=== PATIENT | female | born 1985 | race Caucasian/White ===

== ENCOUNTER 2020-11-12 13:10 | Emergency (ER) | payer OTHER ==
[2020-11-12 14:04] LABS: Urine Blood Trace-intact (Negative); Urine Glucose Negative (Negative); Urine Protein Negative (Negative); Urine Specific Gravity >=1.030 (1.005-1.030)
[2020-11-12 14:21] LABS: Absolute Lymphocytes (CBC) 2.4 K/uL (0.7-4.9); Basophils % 0.2 % (0-1.3); Hematocrit 37.7 % (36.0-45.0); Lymphocytes % 42.5 % (15.3-44.8); MPV 8.2 fL (7.6-11.3); RBC Red Blood Cell Count 4.15 M/uL (3.86-4.86)
[2020-11-12 14:28] LABS: Albumin 3.8 g/dL (3.4-5.0); Bilirubin Direct 0.1 mg/dL (0-0.2); Bilirubin Total 0.7 mg/dL (0.2-1.0); Protein, Total 7.5 g/dL (6.4-8.2)
--- NOTE | 2020-11-12 14:53 | RAD REPORT ---
EXAM DESCRIPTION: CTAbdomen Pelvis W Contrast - 11/12/2020 2:37 pm CLINICAL HISTORY: Abdominal pain. ABD PAIN COMPARISON: No comparisons TECHNIQUE: Biphasic CT imaging of the abdomen and pelvis was performed with 100 ml non-ionic IV cont rast. All CT scans are performed using dose optimization technique as appropriate and may include automated exposure control or mA/KV adjustment according to patient size. FINDINGS: The lung bases are clear. The liver, spleen, pancreas, adrenal glands and kidneys are within normal limits. No bowel obstruction, free air, free fluid or abscess. Small fat containing umbilical hernia. The ba endix is not identified as a discrete structure, however, no secondary findings of appendicitis are i dentified. No evidence of significant lymphadenopathy. No suspicious bony findings. IMPRESSION: No acute intra-abdominal or pelvic finding. Small fat containing umbilical hernia.
--- NOTE | 2020-11-12 15:01 | EDPHYS ---
Physician Documentation [facility] Name: Christy Galicia Age: 35 yrs Sex: Female : 1985 Arrival Date: 11/12/2020 Time: 13:11 Bed 20 Private MD: ED Physician Everton Davis HPI: 11/12 13:44 This 35 yrs old Female presents to ER via Ambulatory with complaints of jr8 Abdominal Pain, Abdominal Swelling. 13:44 The patient presents with abdominal pain. Onset: The symptoms/episode began/occurred jr8 gradually. The symptoms do not radiate. Associated signs and symptoms: Pertinent positives: nausea. The symptoms are described as shooting. Modifying factors: The symptoms are alleviated by nothing, the symptoms are aggravated by movement. Severity of pain: At its worst the pain was moderate in the emergency department the pain is unchanged. The patient has not experienced similar symptoms in the past. The patient has not recently seen a physician. This is a 35-year-old female patient who presented emergency room with increased abdominal pain over the past few days. Stated that she had sneezed excessively a few days ago and has since then had mid abdominal pain that is spread to the left side. Patient stated that she is now becoming nauseated from it and is not drinking or eating correctly.. Historical: - Allergies: 13:16 Clindamycin; ll1 13:16 Chlorhexidine Gluconate; ll1 - PMHx: 13:16 depression/anxiety; ll1 - PSHx: 13:16 hysterectomy; ll1 - Immunization history:: Client reports receiving the 2nd dose of the Covid vaccine. - Social history:: Smoking status: Patient denies any tobacco usage or history of. ROS: 13:44 Eyes: Negative for injury, pain, redness, and discharge, ENT: Negative for injury, jr8 pain, and discharge, Neck: Negative for injury, pain, and swelling, Cardiovascular: Negative for chest pain, palpitations, and edema, Respiratory: Negative for shortness of breath, cough, wheezing, and pleuritic chest pain, Back: Negative for injury and pain, MS/Extremity: Negative for injury and deformity, Skin: Negative for injury, rash, and discoloration, Neuro: Negative for headache, weakness, numbness, tingling, and seizure. 13:44 Abdomen/GI: Positive for abdominal pain, nausea, Negative for vomiting, diarrhea, constipation, abdominal cramps, abdominal distension. Exam: 13:44 Constitutional: This is a well developed, well nourished patient who is awake, alert, jr8 and in no acute distress. Cardiovascular: Regular rate and rhythm with a normal S1 and S2. No gallops, murmurs, or rubs. Normal PMI, no JVD. No pulse deficits. Respiratory: Lungs have equal breath sounds bilaterally, clear to auscultation and percussion. No rales, rhonchi or wheezes noted. No increased work of breathing, no retractions or nasal flaring. Back: No spinal tenderness. No costovertebral tenderness. Full range of motion. Skin: Warm, dry with normal turgor. Normal color with no rashes, no lesions, and no evidence of cellulitis. MS/ Extremity: Pulses equal, no cyanosis. Neurovascular intact. Full, normal range of motion. Neuro: Awake and alert, GCS 15, oriented to person, place, time, and situation. Cranial nerves II-XII grossly intact. Motor strength 5/5 in all extremities. Sensory grossly intact. Cerebellar exam normal. Normal gait. 13:44 Abdomen/GI: Inspection: obese Bowel sounds: active, all quadrants, Palpation: soft, in all quadrants, mild abdominal tenderness, in the anterior aspect of left lateral abdomen and left lower quadrant, mass, is not appreciated, rebound tenderness, is not appreciated, voluntary guarding, is not appreciated, involuntary guarding, is not appreciated, no appreciated organomegaly, Indicators: McBurney's point is not tender, Millard's sign is negative, Rovsing's sign is negative. Vital Signs: 13:18 BP 151 / 95; Pulse 85; Resp 17; Temp 97.4; Pulse Ox 98% ; Weight 101.6 kg; Height 5 ft. ll1 7 in. (170.18 cm); Pain 6/10; 15:42 BP 133 / 90; Pulse 84; Resp 16; tc5 13:18 Body Mass Index 35.08 (101.60 kg, 170.18 cm) ll1 MDM: 13:21 Patient medically screened. jr8 14:59 Data reviewed: vital signs, nurses notes, lab test result(s), radiologic studies, CT jr8 scan. Data interpreted: Pulse oximetry: on room air is 98 %. Interpretation: normal. Counseling: I had a detailed discussion with the patient and/or guardian regarding: the historical points, exam findings, and any diagnostic results supporting the discharge/admit diagnosis, lab results, radiology results, the need for outpatient follow up, a family practitioner, to return to the emergency department if symptoms worsen or persist or if there are any questions or concerns that arise at home. Special discussion: Based on the patient's Hx, exam, and Dx evaluation, there is no indication for emergent surgery or inpatient Tx. It is understood by the patient/guardian that if the Sx's persist or worsen they need to return immediately for re-evaluation. 11/12 13:30 Order name: Basic Metabolic Panel; Complete Time: 14:59 jr8 11/12 13:30 Order name: CBC with Diff; Complete Time: 14:23 jr8 11/12 13:30 Order name: Hepatic Function; Complete Time: 14:59 jr8 11/12 13:30 Order name: Lipase; Complete Time: 14:59 jr8 11/12 14:04 Order name: Urine Dipstick-Ancillary EDMS 11/12 14:07 Order name: Urine --Ancillary (enter results); Complete Time: 14:18 eb 11/12 13:30 Order name: IV Saline Lock; Complete Time: 15:30 jr8 11/12 13:30 Order name: Labs collected and sent; Complete Time: 15:30 jr8 11/12 13:30 Order name: CT Abd/Pelvis - IV Contrast Only; Complete Time: 14:59 jr8 Administered Medications: No medications were administered Disposition: 17:00 Co-signature as Attending Physician, Everton Davis MD I agree with the assessment and rn plan of care. Attestation: The patient's history, exam findings, diagnostics, and a summary of any interventions or procedures was reviewed in detail with Serafin SANDS. Disposition Summary: 11/12/20 15:00 Discharge Ordered Location: Home jr8 Problem: new jr8 Symptoms: have improved jr8 Condition: Stable jr8 Diagnosis - Abdominal pain, Generalized jr8 Followup: jr8 - With: Private Physician - When: 2 - 3 days - Reason: Recheck today's complaints, Continuance of care, Re-evaluation by your physician Discharge Instructions: - Discharge Summary Sheet jr8 - Abdominal Pain, Adult jr8 Forms: - Medication Reconciliation Form jr8 - Thank You Letter jr8 - Antibiotic Education jr8 - Prescription Opioid Use jr8 Signatures: Dispatcher [employer] EDEverton Curtis MD MD rn Roszak, Josh, PA PA jr8 Medardo Little RN RN ll1
--- NOTE | 2020-11-12 15:01 | ER ---
Nurse's Notes [facility] Name: Christy Galicia Age: 35 yrs Sex: Female : 1985 Arrival Date: 11/12/2020 Time: 13:11 Bed 20 Private MD: Diagnosis: Abdominal pain, Generalized Presentation: 11/12 13:18 Chief complaint: Patient states: Sneezing, nasal congestion started Sunday. Sunday ll1 she started having epigastric pain with nausea. Pain to L side of abdomen now. No fever or dysuria. Coronavirus screen: Vaccine status: Patient reports receiving the 2nd dose of the covid vaccine. Client denies travel out of the [place] in the last 14 days. cough unrelated to allergies, diarrhea, nausea, Client presents with at least one sign or symptom that may indicate coronavirus-19. Standard/surgical mask placed on the client. Ebola Screen: Patient denies travel to an Ebola-affected area in the 21 days before illness onset. Initial Sepsis Screen: Does the patient meet any 2 criteria? No. Patient's initial sepsis screen is negative. Does the patient have a suspected source of infection? Yes: Acute abdominal pain. Risk Assessment: Do you want to hurt yourself or someone else? Patient reports no desire to harm self or others. Onset of symptoms was November 06, 2020. 13:18 Method Of Arrival: Ambulatory 1 13:18 Acuity: ANGELO 3 ll1 Triage Assessment: 14:09 General: Appears in no apparent distress. Behavior is calm, cooperative, appropriate tc5 for age. Pain: Complains of pain in epigastric area, right upper quadrant and left upper quadrant. GI: Reports lower abdominal pain, bloating, nausea, pt reports she has loose stool, but that is normal for her. Historical: - Allergies: 13:16 Clindamycin; ll1 13:16 Chlorhexidine Gluconate; ll1 - PMHx: 13:16 depression/anxiety; ll1 - PSHx: 13:16 hysterectomy; ll1 - Immunization history:: Client reports receiving the 2nd dose of the Covid vaccine. - Social history:: Smoking status: Patient denies any tobacco usage or history of. Screenin:10 Abuse screen: Denies threats or abuse. Denies injuries from another. Nutritional tc5 screening: No deficits noted. Tuberculosis screening: No symptoms or risk factors identified. Fall Risk None identified. Assessment: 14:10 Reassessment: Patient appears in no apparent distress at this time. No changes from tc5 previously documented assessment. Vital Signs: 13:18 BP 151 / 95; Pulse 85; Resp 17; Temp 97.4; Pulse Ox 98% ; Weight 101.6 kg; Height 5 ft. ll1 7 in. (170.18 cm); Pain 6/10; 15:42 BP 133 / 90; Pulse 84; Resp 16; tc5 13:18 Body Mass Index 35.08 (101.60 kg, 170.18 cm) 1 ED Course: 13:11 Patient arrived in ED. as 13:18 Arm band placed on Patient placed in an exam room, on a stretcher. 1 13:20 Triage completed. 1 13:21 Serafin Izaguirre PA is PHCP. jr8 13:21 Everton Davis MD is Attending Physician. jr8 13:39 Elli Scott, ADIN is Primary Nurse. tc5 14:10 Inserted saline lock: 20 gauge in right antecubital area, using aseptic technique. tc5 Blood collected. 14:37 CT Abd/Pelvis - IV Contrast Only In Process Unspecified. EDMS 15:42 IV discontinued, intact, bleeding controlled, No redness/swelling at site. Pressure tc5 dressing applied. Administered Medications: No medications were administered Outcome: 15:00 Discharge ordered by . jr8 15:43 Patient left the ED. tc5 Signatures: Dispatcher [employer] EDMS Arti Perez Josh, PA PA jr8 Medardo Little RN RN [facility] Elli Scott RN RN tc
[2020-11-12 15:47] VITALS: TEMP 97.4; O2SAT 98
[2020-11-12 15:48] VITALS: BP 133/90
== END 2020-11-12 15:43 | disposition home or self-care (01) ==
LOC: ER 13:10
DX: R10.84 Generalized abdominal pain (principal); Z88.3 Allergy status to other anti-infective agents; Z88.8 Allergy status to other drugs, medicaments and biological substances
CPT/HCPCS: 85025; 80048; 36415; 81025; 82565; 80076; 81003; 83690; 74177; 99283; Q9967